=== PATIENT | female | born 1965 | race African-American/Black ===

== ENCOUNTER 2019-07-08 15:17 | Outpatient (CLI) | payer BC, SELFPAY ==
--- NOTE | ~2019-07-08 | CT_ITS ---
EXAMINATION: CT brain wo con DATE: 07/08/2019 15:52 INDICATION: Headache TECHNIQUE: Computed tomography (CT) of the head was performed without intravenous contrast. The mA wa s adjusted according to patient size. Iterative reconstruction technique was employed. Exam dose: 60 5.33 mGy-cm total exam DLP. COMPARISON: None FINDINGS: No intracranial mass lesion or hemorrhage or cerebrovascular accident is detected. No midl ine shift or mass effect. Normal ventricular size. Normal busch white matter differentiation. No trujillo bdural or epidural hematoma. No skull fracture or bone destruction. Included paranasal sinuses and mastoid air cells are normally developed and aerated. IMPRESSION: Negative Reviewed, dictated and finalized at [facility]. Reviewed, dictated and finalized at location [facility]. IMPRESSION: Negative
--- NOTE | ~2019-07-08 | XR_ITS ---
XR knee LT 3V DATE: 07/08/2019 16:03 INDICATION: Left knee pain when taking stairs. No injury. TECHNIQUE: Severy and AP and lateral views COMPARISON: None FINDINGS: No fracture or dislocation or joint effusion. Joint spaces are preserved. No radiopaque int ra-articular loose body or chondrocalcinosis. No periosteal reaction or bone destruction. IMPRESSION: Negative left knee Reviewed, dictated and finalized at location [facility]. IMPRESSION: Negative left knee
--- NOTE | ~2019-07-08 | XR_ITS ---
EXAMINATION:XR cervical spine 4-5V DATE: 07/08/2019 16:04 INDICATION: Cervicalgia, left lateral neck pain and numbness TECHNIQUE: AP, lateral, lateral swimmers and odontoid views of the cervical spine are provided. COMPARISON: 11/17/2013 FINDINGS: Alignment is normal. The odontoid is intact. No fracture is identified. The vertebral body heights are normal. There is chronic moderate loss of intervertebral disc space height at C4-5 and C5 -6. Small degenerative osteophytes project from the anterior endplates of multiple vertebral bodies. There is moderate facet and uncovertebral joint osteoarthritis at C4-5 and C5-6. Prevertebral soft ti ssues are normal. IMPRESSION: 1. Moderate cervical spondylosis without acute findings or significant interval change. Reviewed, dictated and finalized at location [facility].
== END 2019-07-08 15:18 | disposition home or self-care (01) ==
LOC: ANHIMG 15:29
PROVIDERS: PCP Internal Medicine; Visit Provider Internal Medicine
DX: M47.892 Other spondylosis, cervical region (principal)
CPT/HCPCS: 70450; 72050; 73562

== ENCOUNTER 2021-10-06 10:01 | Outpatient (CLI) | payer BC, SELFPAY ==
--- NOTE | ~2021-10-06 | XR_ITS ---
EXAMINATION: XR chest 2V 10/06/2021 10:29 INDICATION: Intermittent palpitations PROCEDURE: 2 view chest COMPARISON: No prior studies for comparison. FINDINGS: The lungs are clear. The cardiomediastinal silhouette is within normal limits. There are no pleural effusions. There is no pneumothorax suspected. There are surgical clips overlying the ch est bilaterally. IMPRESSION: 1: NO ACUTE CARDIOPULMONARY DISEASE. Reviewed, dictated and finalized at location A.
--- NOTE | ~2021-10-06 | XR_ITS ---
XR hip LT min 2V 10/06/2021 10:28 Indication: Left hip pain Procedure: 2 views left hip Comparison: No prior studies for comparison. Findings: There is mild osteoarthritis of the left hip. No acute fracture or traumatic malalignment. No significant soft tissue abnormality. There are amorphous calcifications in the right pelvis, possi alpa partially calcified uterine fibroid. Impression: 1: Mild osteoarthritis of the left hip. Reviewed, dictated and finalized at location A. Impression: 1: Mild osteoarthritis of the left hip.
--- NOTE | ~2021-10-06 | XR_ITS ---
XR lumbar spine min 4V DATE: 10/06/2021 10:29 INDICATION: Low back pain, left hip pain TECHNIQUE: AP, lateral, coned lateral lumbosacral views, bilateral oblique views COMPARISON: None FINDINGS: There is slight dextroscoliosis of the lumbar spine. 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 There is grade 1 anterolisthesis at L4-5. Lumbar interspaces are relatively well preserved. There is minimal degenerative lipping of the lumbar vertebrae. No fracture or bone destruction or spondylolisthesis. T10-L5 pedicles are intact. The sacroiliac join ts appear normal. Large calcified uterine fibroid is noted overlying the right pelvis. 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 IMPRESSION: Transitional fifth lumbar vertebra with sacralization pseudoarthros is on the right Minimal degenerative change of the lumbar spine Slight dextroscoliosis of the lumbar spine
== END 2021-10-06 10:02 | disposition home or self-care (01) ==
LOC: ANHIMG 10:07
PROVIDERS: PCP Internal Medicine; Visit Provider Internal Medicine
DX: R00.2 Palpitations (principal); M54.42 Lumbago with sciatica, left side; M16.12 Unilateral primary osteoarthritis, left hip
CPT/HCPCS: 71046; 72110; 73502

== ENCOUNTER 2021-10-13 12:37 | Outpatient (CLI) | payer BC, SELFPAY ==
--- NOTE | ~2021-10-13 | US_ITS ---
EXAMINATION: US venous doppler LE RT DATE: 10/13/2021 13:15 INDICATION: Right lower limb pain TECHNIQUE: Grayscale ultrasound images without and with compression and Doppler ultrasound images of the right lower extremity veins were obtained. COMPARISON: None. FINDINGS: The visualized portions of right common femoral vein, profunda (deep) femoral vein, femoral vein, pop liteal vein, peroneal trunk, posterior tibial veins, peroneal veins, gastrocnemius vein and greater s aphenous vein outflow are patent. IMPRESSION: 1. No deep venous thrombosis in the right lower limb. Reviewed, dictated and finalized at location B.
== END 2021-10-13 12:38 | disposition home or self-care (01) ==
PROVIDERS: PCP Internal Medicine; Visit Provider Internal Medicine
DX: M79.661 Pain in right lower leg (principal)
CPT/HCPCS: 93971

== ENCOUNTER → 2021-11-09 | Outpatient (REF) | payer BC, SELFPAY | END | disposition home or self-care (01) | LOC: ANHLAB 15:41 | PROVIDERS: PCP Internal Medicine; Visit Provider Surgery Plastic and Reconstructive Surgery | DX: L73.0 Acne keloid (principal) | CPT/HCPCS: 88305 ==

== ENCOUNTER 2022-12-31 13:22 | Outpatient (CLI) | payer BC, SELFPAY ==
--- NOTE | ~2022-12-31 | XR_ITS ---
EXAM: XR foot LT min 3V DATE: 12/31/2022 13:55 HISTORY: fell from attic yest, pain and swelling near ankle, anterior . COMPARISON: None available. FINDINGS: Normal mineralization. Medial malleolus fracture Depression type calcaneal fracture. No ot her fracture or dislocation. No lytic or blastic lesion. Joint spaces are maintained. No erosion or p eriosteal change. Soft tissue swelling most notably over the forefoot within normal limits. IMPRESSION: Depression type left calcaneal fracture. Medial malleolus fracture, please refer to the report on the ankle radiograph for further details. Reviewed, dictated and finalized at location [facility]. IMPRESSION: Depression type left calcaneal fracture. Medial malleolus fracture, please refer to the report on the ankle radiograph f or further details.
--- NOTE | ~2022-12-31 | XR_ITS ---
EXAMINATION: XR ankle LT min 3V DATE: 12/31/2022 13:53 INDICATION: Left ankle injury and pain and swelling. TECHNIQUE: 4 views of left ankle were obtained. COMPARISON: None. FINDINGS: There is an oblique fracture of medial malleolus in near-anatomic alignment. There is a karsten nt depression fracture of calcaneus. Other joint spaces are normal. There are enthesophytes at the po sterior and plantar aspects of calcaneal tuberosity. Ankle soft tissue swelling is noted. IMPRESSION: 1. Oblique fracture of medial malleolus. 2. Joint depression fracture of calcaneus. Reviewed, dictated and finalized at location A.
== END 2022-12-31 13:23 | disposition home or self-care (01) ==
PROVIDERS: PCP Internal Medicine; Visit Provider Internal Medicine
DX: M25.572 Pain in left ankle and joints of left foot (principal)
CPT/HCPCS: 73610; 73630